=== PATIENT | female | born 1990 ===

== ENCOUNTER 2021-11-12 21:11 | Outpatient (CLI) | payer OTHER ==
[~2021-11-12] VITALS: Ht 172.7 cm; Wt 93.2 kg
[2021-11-12 21:38] VITALS: BP 115/65
[2021-11-12] MEDS ORDERED: FOLI1TAB11 PO ×2 (21:44)
[2021-11-12] MEDS ORDERED: ASPI81CH33 PO (21:44)
[2021-11-12] MEDS ORDERED: PRENTAB9 PO (21:44)
[2021-11-12 22:16] LABS: APPEARANCE, URINE MANUAL HAZY (CLEAR); COLOR, URINE MANUAL YELLOW (YELLOW); LEUKOCYTE ESTERASE, URINE MAN POSITIVE (NEGATIVE)
[2021-11-12 22:17] LABS: BILIRUBIN, URINE MANUAL NEGATIVE (NEGATIVE); BLOOD URINE MANUAL NEGATIVE (NEGATIVE); GLUCOSE, URINE (UA) MANUAL NEGATIVE (NEGATIVE); KETONE, URINE MANUAL NEGATIVE (NEGATIVE); NITRITE, URINE MANUAL NEGATIVE (NEGATIVE); PROTEIN, URINE MANUAL NEGATIVE (NEGATIVE); SPECIFIC GRAVITY,URINE MANUAL 1.005 (1.002-1.035); UROBILINOGEN, URINE MANUAL NORMAL (NORMAL)
[2021-11-12 22:23] LABS: WBC, URINE 20-30 /hpf (0-3)
[2021-11-12 22:24] LABS: AMORPHOUS SEDIMENT, URINE SMALL AMOUNT (NEGATIVE); BACTERIA, URINE SMALL AMOUNT; HYALINE CAST, URINE NONE SEEN /lpf (0-1); RBC, URINE 0-1 /hpf (0-3); SQUAMOUS EPITHELIAL CELL URINE MOD AMOUNT /hpf (SMALL AMT)
[2021-11-12] MEDS ORDERED: FLUCONAZOLE 50MG TABLET PO ONE (22:50)
[2021-11-12] MEDS ORDERED: LR 1,000 ML IV ONE (22:50)
[2021-11-13 00:22] LABS: GC DNA AMPLIFICATION NEGATIVE (NEGATIVE)
[2021-11-13] MEDS ORDERED: TERBUTALINE SULFATE 1 MG/ML VIAL (J3105) SC STA (00:41)
[2021-11-13 01:03] LABS: HEMATOCRIT 32.2 % (36.0-47.0); HEMOGLOBIN 10.7 g/dl (12.0-15.5); MEAN CORPUSCULAR HEMOGLOBIN 30.7 pg (27.0-33.0); MEAN CORPUSCULAR HGB CONC 33.2 g/dl (32.0-36.5); MEAN CORPUSCULAR VOLUME 92.3 fl (80.0-96.0); PLATELET COUNT, AUTOMATED 156 10^3/uL (150-450); RED BLOOD COUNT 3.49 10^6/uL (4.00-5.40); WHITE BLOOD COUNT 10.9 10^3/uL (4.0-10.0)
[2021-11-13 01:32] VITALS: BP 118/68
[2021-11-13 01:39] LABS: ALBUMIN 2.6 GM/DL (3.2-5.2); ALT/SGPT 15 U/L (12-78); BILIRUBIN,TOTAL 0.3 MG/DL (0.2-1.0); BLOOD UREA NITROGEN 5 MG/DL (7-18); CALCIUM LEVEL 8.4 MG/DL (8.5-10.1); CARBON DIOXIDE LEVEL 23 MEQ/L (21-32); CHLORIDE LEVEL 109 MEQ/L (98-107); CREATININE FOR GFR 0.31 MG/DL (0.55-1.30); GLOMERULAR FILTRATION RATE > 60.0 (>60); GLUCOSE, FASTING 90 MG/DL (70-100); POTASSIUM SERUM 3.6 MEQ/L (3.5-5.1); SODIUM LEVEL 139 MEQ/L (136-145); TOTAL PROTEIN 5.9 GM/DL (6.4-8.2)
[2021-11-13 02:29] LABS: APPEARANCE, URINE MANUAL CLEAR (CLEAR); COLOR, URINE MANUAL LT YELLOW (YELLOW)
[2021-11-13 02:30] LABS: BILIRUBIN, URINE MANUAL NEGATIVE (NEGATIVE); GLUCOSE, URINE (UA) MANUAL NEGATIVE (NEGATIVE); KETONE, URINE MANUAL 1+ mg/dL (NEGATIVE); LEUKOCYTE ESTERASE, URINE MAN POSITIVE (NEGATIVE); NITRITE, URINE MANUAL NEGATIVE (NEGATIVE); PROTEIN, URINE MANUAL NEGATIVE (NEGATIVE); SPECIFIC GRAVITY,URINE MANUAL 1.005 (1.002-1.035); UROBILINOGEN, URINE MANUAL NORMAL (NORMAL)
[2021-11-13 02:39] LABS: BACTERIA, URINE MOD AMOUNT; HYALINE CAST, URINE NONE SEEN /lpf (0-1); RBC, URINE 0-1 /hpf (0-3); SQUAMOUS EPITHELIAL CELL URINE LARGE AMOUNT /hpf (SMALL AMT); TRANSITIONAL EPI CELLS, URINE SMALL AMOUNT /hpf
[2021-11-13 02:40] LABS: BLOOD URINE MANUAL NEGATIVE (NEGATIVE)
== END 2021-11-13 03:47 | disposition home or self-care (01) ==
LOC: M LDO 21:11
PROVIDERS: ATTEND Obstetrics & Gynecology
DX: O30.043 Twin pregnancy, dichorionic/diamniotic, third trimester (principal); Z3A.31 31 weeks gestation of pregnancy; O47.03 False labor before 37 completed weeks of gestation, third trimester; Z79.82 Long term (current) use of aspirin
CPT/HCPCS: 36415; 59025; 76815; 80053; 81000; 85027; 87810; 87850; G0463; J3105

== ENCOUNTER 2021-11-15 09:47 | Outpatient (CLI) | payer OTHER ==
[~2021-11-15] VITALS: Ht 172.7 cm; Wt 93.1 kg
[~2021-11-15 09:47] MED LIST: ASPI81CH33 PO; FOLI1TAB11 PO; PRENTAB9 PO
[2021-11-15 10:07] VITALS: BP 120/67
[2021-11-15] MEDS ORDERED: BETAMETHASONE SOLUSPAN 6MG/ML 5ML VIAL (J0702 PER 3MG) IM SCH (11:30)
[2021-11-15 12:26] VITALS: BP 118/70
[2021-11-15] MEDS ORDERED: TERBUTALINE SULFATE 1 MG/ML VIAL (J3105) SC STA (13:40)
[2021-11-15 13:48] VITALS: BP 111/66
[2021-11-15 14:18] VITALS: BP 107/59
== END 2021-11-15 14:31 | disposition home or self-care (01) ==
LOC: M LDO 09:47
PROVIDERS: ATTEND Obstetrics & Gynecology
DX: O30.043 Twin pregnancy, dichorionic/diamniotic, third trimester (principal); Z3A.31 31 weeks gestation of pregnancy; O47.03 False labor before 37 completed weeks of gestation, third trimester
CPT/HCPCS: 59025; 76815; 76817; 76819; 76820; 81000; 81015; 87086; 96372; G0463; J0702; J3105

== ENCOUNTER 2021-11-16 12:38 | Outpatient (CLI) | payer OTHER ==
[~2021-11-16] VITALS: Ht 172.7 cm; Wt 93.1 kg
[2021-11-16] MEDS ORDERED: HOME MED LIST COMPLETE! XX SCH (12:50)
[2021-11-16 12:58] VITALS: BP 109/56
[2021-11-16] MEDS ORDERED: BETAMETHASONE SOLUSPAN 6MG/ML 5ML VIAL (J0702 PER 3MG) IM ONE (13:15)
== END 2021-11-16 13:07 | disposition home or self-care (01) ==
LOC: M LDO 12:38
PROVIDERS: ATTEND Obstetrics & Gynecology
DX: O30.043 Twin pregnancy, dichorionic/diamniotic, third trimester (principal); Z3A.31 31 weeks gestation of pregnancy; O47.03 False labor before 37 completed weeks of gestation, third trimester
CPT/HCPCS: 96372; J0702

== ENCOUNTER 2021-11-27 12:27 | Outpatient (CLI) | payer OTHER ==
[~2021-11-27] VITALS: Ht 172.7 cm; Wt 94.2 kg
[2021-11-27 13:07] VITALS: BP 127/75
[2021-11-27] MEDS ORDERED: metroNIDAZOLE 70 GM VAGINAL GEL PV SCH (14:30)
[2021-11-27 16:35] VITALS: BP 126/77
== END 2021-11-27 16:36 | disposition home or self-care (01) ==
LOC: M LDO 12:27
PROVIDERS: ATTEND Registered Nurse
DX: O23.593 Infection of other part of genital tract in pregnancy, third trimester (principal); O30.043 Twin pregnancy, dichorionic/diamniotic, third trimester; Z3A.33 33 weeks gestation of pregnancy
CPT/HCPCS: 59025; 76815; G0378; G0463

== ENCOUNTER 2021-11-28 12:50 | Outpatient (CLI) | payer OTHER ==
[~2021-11-28] VITALS: Ht 172.7 cm; Wt 94.2 kg
== END 2021-11-28 16:30 | disposition home or self-care (01) ==
LOC: M LDO 12:50
PROVIDERS: ATTEND Obstetrics & Gynecology
DX: O30.043 Twin pregnancy, dichorionic/diamniotic, third trimester (principal); Z3A.33 33 weeks gestation of pregnancy
CPT/HCPCS: 59025; 76815; 76819; 76820; G0463

== ENCOUNTER 2021-12-08 11:52 | Outpatient (CLI) | payer OTHER ==
[~2021-12-08] VITALS: Ht 172.7 cm; Wt 98.0 kg
[2021-12-08 12:08] VITALS: BP 127/66
[2021-12-08] MEDS ORDERED: HOME MED LIST COMPLETE! XX SCH (12:15)
[2021-12-08 13:43] LABS: APPEARANCE, URINE MANUAL HAZY (CLEAR); COLOR, URINE MANUAL YELLOW (YELLOW)
[2021-12-08 13:45] LABS: BILIRUBIN, URINE MANUAL NEGATIVE (NEGATIVE); GLUCOSE, URINE (UA) MANUAL NEGATIVE (NEGATIVE); KETONE, URINE MANUAL NEGATIVE (NEGATIVE); NITRITE, URINE MANUAL NEGATIVE (NEGATIVE); PROTEIN, URINE MANUAL NEGATIVE (NEGATIVE); SPECIFIC GRAVITY,URINE MANUAL 1.015 (1.002-1.035); UROBILINOGEN, URINE MANUAL NORMAL (NORMAL)
[2021-12-08 13:46] LABS: BLOOD URINE MANUAL TRACE (NEGATIVE); LEUKOCYTE ESTERASE, URINE MAN POSITIVE (NEGATIVE)
[2021-12-08 13:55] LABS: BACTERIA, URINE MOD AMOUNT; SQUAMOUS EPITHELIAL CELL URINE LARGE AMOUNT /hpf (SMALL AMT); WBC, URINE 30-40 /hpf (0-3)
[2021-12-08 13:56] LABS: MUCUS, URINE SMALL AMOUNT (NEGATIVE); RENAL EPITHELIAL CELLS, URINE SMALL AMOUNT /hpf; TRANSITIONAL EPI CELLS, URINE SMALL AMOUNT /hpf
[2021-12-08 13:57] LABS: HYALINE CAST, URINE NONE SEEN /lpf (0-1)
== END 2021-12-08 13:15 | disposition home or self-care (01) ==
LOC: M LDO 11:52
PROVIDERS: ATTEND Obstetrics & Gynecology
DX: O47.03 False labor before 37 completed weeks of gestation, third trimester (principal); O30.043 Twin pregnancy, dichorionic/diamniotic, third trimester; Z3A.34 34 weeks gestation of pregnancy
CPT/HCPCS: 59025; 81000; G0463

== ENCOUNTER 2021-12-16 13:02 | Outpatient (CLI) | payer OTHER ==
[~2021-12-16] VITALS: Ht 172.7 cm; Wt 102.0 kg
[2021-12-16 13:33] VITALS: BP 129/80
[2021-12-16] MEDS ORDERED: ACET-897 PO (14:18)
[2021-12-16 14:46] VITALS: BP 134/76
== END 2021-12-16 15:11 | disposition home or self-care (01) ==
LOC: M LDO 13:02
PROVIDERS: ATTEND Advanced Practice Midwife
DX: O36.8331 Maternal care for abnormalities of the fetal heart rate or rhythm, third trimester, fetus 1 (principal); O36.8332 Maternal care for abnormalities of the fetal heart rate or rhythm, third trimester, fetus 2; O30.043 Twin pregnancy, dichorionic/diamniotic, third trimester; Z3A.36 36 weeks gestation of pregnancy; Z79.82 Long term (current) use of aspirin; Z79.899 Other long term (current) drug therapy
CPT/HCPCS: 59025; 76815; 76819; 76820; G0378; G0463

== ENCOUNTER 2021-12-23 07:47 | Inpatient (IN) | payer OTHER ==
[2021-12-23] VITALS (35 sets, daily range): BP systolic 120–170; BP diastolic 63–97
[~2021-12-23] VITALS: Ht 172.7 cm; Wt 104.0 kg
[~2021-12-23 07:47] MED LIST changes: +ACET-897 PO
[2021-12-23 09:09] LABS: HEMATOCRIT 35.1 % (36.0-47.0); HEMOGLOBIN 11.8 g/dl (12.0-15.5); MEAN CORPUSCULAR HEMOGLOBIN 30.4 pg (27.0-33.0); MEAN CORPUSCULAR HGB CONC 33.6 g/dl (32.0-36.5); MEAN CORPUSCULAR VOLUME 90.5 fl (80.0-96.0); PLATELET COUNT, AUTOMATED 144 10^3/uL (150-450); RED BLOOD COUNT 3.88 10^6/uL (4.00-5.40); WHITE BLOOD COUNT 8.6 10^3/uL (4.0-10.0)
[2021-12-23] MEDS ORDERED: LIDOCAINE 1% MDV 20ML VIAL INFIL PRN (09:10)
[2021-12-23] MEDS ORDERED: TRANEXAMIC ACID INJection 1,000 MG in NS 100 ML IV PRN (09:10)
[2021-12-23] MEDS ORDERED: CARBOPROST TROMETHAMINE 250 MCG/ML AMP IM PRN (09:10)
[2021-12-23] MEDS ORDERED: OXYTOCIN DRIP 30 UNITS in IV 1 EA IV PRN ×4 (09:10)
[2021-12-23] MEDS ORDERED: LACTATED RINGER'S 1000 ML IV STA (09:10)
[2021-12-23] MEDS ORDERED: METHYLERGONOVINE MALEATE 0.2 MG/ML VIAL (J2210) IM PRN (09:10)
[2021-12-23 09:53] LABS: ALT/SGPT 16 U/L (12-78); BILIRUBIN,TOTAL 0.3 MG/DL (0.2-1.0); CREATININE FOR GFR 0.48 MG/DL (0.55-1.30); GLOMERULAR FILTRATION RATE > 60.0 (>60); LDH LACTATE DEHYDROGENASE 241 U/L (84-246); URIC ACID 3.3 MG/DL (2.6-6.0)
[2021-12-23 10:01] LABS: CREATININE,RANDOM URINE 49.2 MG/DL; TOTAL PROTEIN,RANDOM URINE 10.2 MG/DL (0.0-12.0)
[2021-12-23] MEDS ORDERED: LR 1,000 ML IV SCH (10:10)
[2021-12-23] MEDS ORDERED: OXYTOCIN DRIP 30 UNITS in IV 1 EA IV SCH (10:10)
[2021-12-23] MEDS ORDERED: diphenhydrAMINE 50MG/ML VIAL (J1200) IV PRN (15:40)
[2021-12-23] MEDS ORDERED: ONDANSETRON 4MG 2ML VIAL IV PRN (15:40)
[2021-12-23] MEDS ORDERED: EPIDURAL/PCA KEYS XX PRN (15:40)
[2021-12-23] MEDS ORDERED: NALOXONE INJ 0.4MG/1ML VIAL (J2310 PER 1MG) IV PRN (15:40)
[2021-12-23] MEDS ORDERED: LR 500 ML IV PRN (15:40)
[2021-12-23] MEDS ORDERED: ePHEDrine SULFATE 25 MG/5 ML(5MG/ML) SYRINGE IVP PRN (15:40)
[2021-12-23] MEDS: FENTANYL/ROPIVACAINE/NACL BAG 100 ML EPIDURAL SCH ×2 (16:57→23:02)
[2021-12-23] MEDS: LR 1,000 ML IV SCH (16:58)
[2021-12-24] VITALS (48 sets, daily range): BP systolic 107–172; BP diastolic 56–89
[2021-12-24] MEDS: LR 1,000 ML IV SCH ×4 (00:32→17:10)
[2021-12-24] MEDS: FENTANYL/ROPIVACAINE/NACL BAG 100 ML EPIDURAL SCH (06:04)
[2021-12-24] MEDS ORDERED: AMPICILLIN SOD/SULBACTAM SOD 3 GM in D5W MINI-BAG PLUS 100 ML IV STA (12:21)
[2021-12-24 12:33] LABS: CORD GAS ABE V -5.7; CORD GAS HCO3 V 18.2 MEQ/L; CORD GAS O2 SAT V 92.3 %; CORD GAS PCO2 V 32.1 mmHg; CORD GAS PH V 7.372 UNITS; CORD GAS PO2 V 48.9 mmHg; CORD GAS SBC V 19.8 MEQ/L; CORD GAS TCO2 V 19.2 MEQ/L
[2021-12-24 12:34] LABS: CORD GAS HCO3 V 21.3 MEQ/L; CORD GAS O2 SAT V 63.5 %; CORD GAS PCO2 V 36.4 mmHg; CORD GAS PH V 7.385 UNITS; CORD GAS PO2 V 24.9 mmHg; CORD GAS SBC V 21.1 MEQ/L; CORD GAS TCO2 V 22.4 MEQ/L
[2021-12-24 12:40] LABS: CORD GAS ABE A -5.5; CORD GAS HCO3 A 21.2 MEQ/L; CORD GAS O2 SAT A 44.1 %; CORD GAS PH A 7.29 UNITS; CORD GAS PO2 A 20.4 mmHg; CORD GAS SBC A 18.6 MEQ/L; CORD GAS TCO2 A 22.5 MEQ/L
[2021-12-24] MEDS ORDERED: ACETAMINOPHEN TAB 650MG DOSE (2X325MG) PO PRN (13:00)
[2021-12-24] MEDS ORDERED: DIBUCAINE 1% OINTMENT 30GM TOP PRN (13:00)
[2021-12-24] MEDS ORDERED: OXYTOCIN DRIP 30 UNITS in IV 1 EA IV SCH (13:00)
[2021-12-24] MEDS ORDERED: IBUPROFEN 600MG TAB PO PRN (13:00)
[2021-12-24] MEDS ORDERED: DOCUSATE SODIUM 100MG CAPSULE PO PRN (13:00)
[2021-12-24] MEDS ORDERED: ONDANSETRON 4MG 2ML VIAL IV PRN (13:00)
[2021-12-24] MEDS ORDERED: LOPERAMIDE 2 MG CAPLET PO PRN (13:00)
[2021-12-24] MEDS ORDERED: CARBOPROST TROMETHAMINE 250 MCG/ML AMP ONE (14:21)
[2021-12-24] MEDS ORDERED: TRANEXAMIC ACID 100 MG/ML 10ML VIAL ONE (14:21)
[2021-12-24] MEDS ORDERED: OXYTOCIN 30 UNITS IN 0.9% NaCl 500ML IV BAG (J2590) ONE (14:21)
[2021-12-24] MEDS ORDERED: OXYTOCIN INJ 10 UNITS/ML VIAL (J2590) ONE (14:21)
[2021-12-24] MEDS: IBUPROFEN 800 MG TAB PO PRN (15:03)
[2021-12-24] MEDS: ACETAMINOPHEN 500 MG TAB PO PRN ×2 (15:03→21:22)
[2021-12-24] MEDS: PRENATAL VITAMINS CHEWABLE TABLET PO SCH (16:56)
[2021-12-25 02:00] VITALS: BP 101/59
[2021-12-25 06:00] VITALS: BP 126/68
[2021-12-25 08:15] LABS: HEMATOCRIT 22.3 % (36.0-47.0); MEAN CORPUSCULAR HEMOGLOBIN 30.7 pg (27.0-33.0); MEAN CORPUSCULAR HGB CONC 34.5 g/dl (32.0-36.5); MEAN CORPUSCULAR VOLUME 88.8 fl (80.0-96.0); PLATELET COUNT, AUTOMATED 155 10^3/uL (150-450); RED BLOOD COUNT 2.51 10^6/uL (4.00-5.40); WHITE BLOOD COUNT 14.3 10^3/uL (4.0-10.0)
[2021-12-25 08:19] LABS: HEMOGLOBIN 7.7 g/dl (12.0-15.5)
[2021-12-25] MEDS: IBUPROFEN 800 MG TAB PO PRN (08:20)
[2021-12-25] MEDS: PRENATAL VITAMINS CHEWABLE TABLET PO SCH (09:00)
[2021-12-25 10:00] VITALS: BP 121/60
[2021-12-25 14:00] VITALS: BP 127/71
[2021-12-25 18:00] VITALS: BP 105/53
[2021-12-25 22:05] VITALS: BP 110/58
[2021-12-26] MEDS: ACETAMINOPHEN 500 MG TAB PO PRN ×2 (00:10→08:12)
[2021-12-26 02:02] VITALS: BP 113/55
[2021-12-26 05:55] VITALS: BP 120/74
[2021-12-26] MEDS: PRENATAL VITAMINS CHEWABLE TABLET PO SCH (08:13)
[2021-12-26] MEDS ORDERED: INFLUENZA QUADRIVALENT PF VACCINE 0.5ML SYRINGE IM.IMMUN ONE (09:00)
[2021-12-26] MEDS ORDERED: MEASLES,MUMPS,RUBELLA VACCINE INJ (MMR-II) (90707) SC.IMMUN ONE (09:00)
[2021-12-26 10:00] VITALS: BP 123/71
== END 2021-12-26 11:25 | disposition home or self-care (01) | DRG 807 ==
LOC: M LDI 07:47 → M OBS 12-24 16:30
PROVIDERS: ADMIT Advanced Practice Midwife; ATTEND Advanced Practice Midwife
PROC: 3E033VJ Introduction of Other Hormone into Peripheral Vein, Percutaneous Approach (ICD-10-PCS; 2021-12-23)
PROC: 10E0XZZ Delivery of Products of Conception, External Approach (ICD-10-PCS; principal; 2021-12-24)
PROC: 0KQM0ZZ Repair Perineum Muscle, Open Approach (ICD-10-PCS; 2021-12-24)
PROC: 10907ZC Drainage of Amniotic Fluid, Therapeutic from Products of Conception, Via Natural or Artificial Opening (ICD-10-PCS; 2021-12-24)
DX: O30.043 Twin pregnancy, dichorionic/diamniotic, third trimester (principal); Z37.0 Single live birth; Z3A.37 37 weeks gestation of pregnancy; Z87.891 Personal history of nicotine dependence; Z79.82 Long term (current) use of aspirin; O32.6XX2 Maternal care for compound presentation, fetus 2; O32.6XX1 Maternal care for compound presentation, fetus 1; O70.1 Second degree perineal laceration during delivery; O13.2 Gestational [pregnancy-induced] hypertension without significant proteinuria, second trimester